=== PATIENT | male | born 1985 | race Caucasian/White ===

== ENCOUNTER 2019-05-10 14:49 | Outpatient (CLI) | payer MEDICAID ==
[2019-05-10 17:05] LABS: BASOPHILS % (AUTO) 0.8 %; EOSINOPHILS # (AUTO) 0.3 10^3/uL (0.0-0.7); EOSINOPHILS % (AUTO) 5.4 %; HGB - HEMOGLOBIN 16.7 g/dL (14.0-18.0); LYMPHOCYTES # (AUTO) 1.2 10^3/uL (1.5-3.5); LYMPHOCYTES % (AUTO) 24.5 %; MEAN CORPUSCULAR HEMOGLOBIN 32.7 pg (27.0-31.0); MEAN CORPUSCULAR HGB CONC 34.4 g/dL (32.0-36.0); MEAN CORPUSCULAR VOLUME 95.3 fL (80.0-94.0); MEAN PLATELET VOLUME 10.3 fL (7.4-11.4); MONOCYTES # (AUTO) 0.5 10^3/uL (0.0-1.0); MONOCYTES % (AUTO) 10.2 %; NEUTROPHILS # (AUTO) 2.8 10^3/uL (1.5-6.6); NEUTROPHILS % (AUTO) 58.5 %; PLT - PLATELET COUNT 271 10^3/uL (130-450); RED CELL DISTRIBUTION WIDTH 12.3 % (12.0-15.0); WHITE BLOOD COUNT 4.8 x10^3/uL (4.8-10.8)
[2019-05-10 17:38] LABS: ALBUMIN 4.3 g/dL (3.2-5.5); ALBUMIN/GLOBULIN RATIO 1.4 (1.0-2.2); ALKALINE PHOSPHATASE 76 IU/L (42-121); ALT ALANINE AMINOTRANSFERASE 32 IU/L (10-60); AST ASPARTATE AMINOTRANSFERASE 35 IU/L (10-42); BILIRUBIN,TOTAL 1.3 mg/dL (0.2-1.0); BUN - BLOOD UREA NITROGEN 13 mg/dL (6-20); CALCIUM 8.8 mg/dL (8.5-10.3); CARBON DIOXIDE - CO2 25 mmol/L (21-32); CHLORIDE 101 mmol/L (101-111); CHOL/HDL RATIO 5.4 (<5.0); CHOLESTEROL 253 mg/dL; GLUCOSE 100 mg/dL (70-100); HDL CHOLESTEROL 47 mg/dL; SODIUM 137 mmol/L (135-145); TOTAL PROTEIN 7.3 g/dL (6.7-8.2)
[2019-05-10 18:30] LABS: LDL CHOLESTEROL,DIRECT 155 mg/dL; LDLD/HDL RATIO 3.3 (<3.6)
== END 2019-05-10 14:50 | disposition home or self-care (01) ==
LOC: LAB.N 14:49
PROVIDERS: ATTEND Nurse Practitioner Gerontology
DX: Z00.00 Encounter for general adult medical examination without abnormal findings (principal); L50.9 Urticaria, unspecified
CPT/HCPCS: 36415; 80053; 80061; 81599; 83721; 84443; 85025

== ENCOUNTER 2019-05-10 17:00 | Outpatient (CLI) | payer MEDICAID ==
--- NOTE | 2019-05-11 03:40 | XRAY Report ---
Reason: L FOOT JOINT PAIN Procedure Date: 05/10/2019 Accession Number: [id number] / [id number] Procedure: XR - Foot 2 View LT CPT Code: Final Report FULL RESULT: EXAM: LEFT FOOT RADIOGRAPHY EXAM DATE: 05/10/2019 05:17 PM. CLINICAL HISTORY: L FOOT JOINT PAIN. COMPARISON: None. TECHNIQUE: 3 views. FINDINGS: There is soft tissue edema along the plantar surface of the forefoot. No retained radiopaque foreign body is seen. The osseous structures are intact and well aligned. The bone mineralization is normal. IMPRESSION: Forefoot plantar soft tissue swelling. No retained radiopaque foreign body. [facility]
== END 2019-05-10 17:01 | disposition home or self-care (01) ==
LOC: DI 17:00
PROVIDERS: ATTEND Nurse Practitioner Gerontology
DX: M79.672 Pain in left foot (principal); R22.42 Localized swelling, mass and lump, left lower limb; Z13.9 Encounter for screening, unspecified; L50.9 Urticaria, unspecified
CPT/HCPCS: 36415; 80053; 80061; 81599; 83721; 84443; 85025

== ENCOUNTER 2020-03-23 08:00 | Outpatient (CLI) | payer MEDICAID ==
[2020-03-23 18:17] LABS: BASOPHILS # (AUTO) 0.1 10^3/uL (0.0-0.1); BASOPHILS % (AUTO) 0.8 %; EOSINOPHILS # (AUTO) 0.2 10^3/uL (0.0-0.7); EOSINOPHILS % (AUTO) 2.8 %; HGB - HEMOGLOBIN 16.6 g/dL (14.0-18.0); LYMPHOCYTES # (AUTO) 1.3 10^3/uL (1.5-3.5); LYMPHOCYTES % (AUTO) 19.8 %; MEAN CORPUSCULAR HGB CONC 33.9 g/dL (32.0-36.0); MEAN CORPUSCULAR VOLUME 94.4 fL (80.0-94.0); MEAN PLATELET VOLUME 10.5 fL (7.4-11.4); MONOCYTES # (AUTO) 0.6 10^3/uL (0.0-1.0); MONOCYTES % (AUTO) 9.8 %; NEUTROPHILS # (AUTO) 4.3 10^3/uL (1.5-6.6); NEUTROPHILS % (AUTO) 66.3 %; PLT - PLATELET COUNT 265 10^3/uL (130-450); RED BLOOD COUNT 5.19 10^6/uL (4.70-6.10); RED CELL DISTRIBUTION WIDTH 11.7 % (12.0-15.0); WHITE BLOOD COUNT 6.5 x10^3/uL (4.8-10.8)
[2020-03-23 18:38] LABS: % IRON SATURATION 53 % (20-50); ALBUMIN 4.7 g/dL (3.2-5.5); ALBUMIN/GLOBULIN RATIO 1.4 (1.0-2.2); ALKALINE PHOSPHATASE 73 IU/L (42-121); ALT ALANINE AMINOTRANSFERASE 27 IU/L (10-60); AST ASPARTATE AMINOTRANSFERASE 31 IU/L (10-42); BILIRUBIN,TOTAL 1.4 mg/dL (0.2-1.0); BUN - BLOOD UREA NITROGEN 14 mg/dL (6-20); CALCIUM 9.2 mg/dL (8.5-10.3); CARBON DIOXIDE - CO2 25 mmol/L (21-32); CHLORIDE 96 mmol/L (101-111); CHOL/HDL RATIO 4.4 (<5.0); CHOLESTEROL 249 mg/dL; GLUCOSE 99 mg/dL (70-100); HDL CHOLESTEROL 57 mg/dL; IRON 248 ug/dL (45-182); TOTAL IRON BINDING CAPACITY 465 ug/dL (250-450); TRANSFERRIN 332 mg/dL (180-329)
[2020-03-23 18:54] LABS: FERRITIN 552.8 ng/mL (23.9-336.2)
[2020-03-23 19:04] LABS: LDL CHOLESTEROL,DIRECT 110 mg/dL; LDLD/HDL RATIO 1.9 (<3.6)
[2020-03-23 19:50] LABS: HEMOGLOBIN A1c% 4.9 % (4.27-6.07)
== END 2020-03-23 23:59 | disposition home or self-care (01) ==
LOC: LAB.WCP 08:00
PROVIDERS: ATTEND Internal Medicine
DX: R19.7 Diarrhea, unspecified (principal)
CPT/HCPCS: 36415; 80053; 80061; 82728; 83036; 83540; 83721; 84443; 84466; 85025

== ENCOUNTER 2020-05-22 08:00 | Outpatient (CLI) | payer MEDICAID | END 2020-05-22 23:59 | disposition home or self-care (01) | LOC: LAB.WCP 08:00 | PROVIDERS: ATTEND Internal Medicine | DX: R53.82 Chronic fatigue, unspecified (principal); Z91.018 Allergy to other foods | CPT/HCPCS: 36415; 81256; 83002; 83516; 84403 ==

== ENCOUNTER 2020-08-24 16:21 | Outpatient (CLI) | payer MEDICAID | END 2020-08-24 16:22 | disposition home or self-care (01) | LOC: LAB.N 16:21 | PROVIDERS: ATTEND Family Medicine | DX: K52.9 Noninfective gastroenteritis and colitis, unspecified (principal) | CPT/HCPCS: 81599; 83497 ==